=== PATIENT | female | born 1975 | race Caucasian/White ===

== ENCOUNTER → 2020-03-26 | Outpatient (CLI) | payer BC ==
[~2020-03-26] VITALS: Ht 162.6 cm; Wt 87.5 kg
[~2020-03-26] MED LIST: ATENOLOL 100MG100 MG PO; FLEXERIL PO; MELOXICAM15 MG PO; TEMAZEPAM30 MG PO; TOPAMAX100 MG PO
[2020-03-26 10:24] VITALS: BP 120/83
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
== END ==
LOC: PAIN 06:51
PROVIDERS: ATTEND Anesthesiology Pain Medicine
DX: M54.5 Low back pain (principal); G89.29 Other chronic pain

== ENCOUNTER → 2020-05-08 | Outpatient (CLI) | payer BC ==
[~2020-05-08] VITALS: Ht 160 cm; Wt 87.8 kg
[2020-05-08 12:25] VITALS: BP 117/80
--- NOTE | 2020-05-08 12:33 | NUR ---
Pain Clinic Assessment: 1. History of Osteoarthritis: DENIES History of Rheumatoid Arthritis: Not Applicable 2. Height: 5 ft. 3 in. 160.0 cm. Weight: 193.6 lb. oz. 87.816 kg. Patient's BMI: 34.3 3. Vital Signs: BP: 117/80 Pulse: 91 Resp: 18 Temp: 02 Sat: 100 ECG Mon: 4. Pain Intensity: 2 TO 7 5. Fall Risk: Dizziness: N Needs help standing or walking: N Fallen in the last 3 months: N Fall risk comments: 6. Patient on Blood Thinner: None 7. History of Hypertension: N 8. Opioid Therapy greater than 6 weeks: N Opiate Contract Signed: 9. Risk Assessment Tool Provided: LOW-0 10. Functional Assessment Tool: 11. Recreational Drug Use: Never Drug Type: Tobacco Use: Never Smoker Tobacco Type: Amount or Packs/day: How Many Years: Alcohol Use: Yes Frequency: Special Occasions Quant: 1
--- NOTE | 2020-05-14 08:22 | HPC ---
[facility] [address] [place] [address] PAIN MANAGEMENT CONSULTATION Name: JAZMINE WEAVER Room #: REG CHARLINE Gay#: [id number] Admission: 05/08/20 Attend Phys: French Topete DO Discharge: Date of : 79 Report #: [id number] THIS REPORT FOR: cc: JUAN M - No family physician/PCP FAM - No family physician/PCP French Topete DO ~ DATE OF SERVICE: 05/08/2020 CHIEF COMPLAINT: Axial back pain, left lower extremity pain with paresthesias. HISTORY OF PRESENT ILLNESS: As you know, the patient is a 44-year-old female with longstanding history of axial back pain without radiation of symptoms. She states her pain began somewhere in 2018. She sought evaluation through neurosurgery, who advised the patient there are no surgical findings within her MRI, that she was suffering from mild arthritic changes and that treatment to address facet arthropathy would be most recommended. She was seen in consultation per the request of her neurosurgeon team on 03/26/2020 and diagnosed with lumbosacral spondylosis without radiculopathy secondary to mild facet arthropathy. She was established an appointment today to undergo bilateral intraarticular facet injections at L4-L5 and L5-S1 to address her facet arthropathy pain. The patient was attempting to see us earlier, but due to her schedule, the first available appointment that she could actually attend was today, 05/08/2020. She reports that the medication adjustments we made at her last visit provided minimal benefit. She is now placing her pain score as 2-7/10. She denies injury or trauma that may have led to symptom reoccurrence. She returns today for intra-articular facet injections. ALLERGIES: No known drug allergies. CURRENT MEDICATIONS: Atenolol, topiramate, meloxicam, cyclobenzaprine, temazepam, Fioricet, amantadine. SOCIAL HISTORY: The patient denies tobacco, alcohol, IV or illicit drug use. 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 She is not receiving workmen's compensation nor is she trying to obtain disability benefits. Unaccompanied today. IMAGING: No new imaging available. PHYSICAL EXAMINATION: VITAL SIGNS: Blood pressure 117/80, pulse 91, respiratory rate 18 and unlabored. The patient is 100% on room air. Height 5 feet 3 inches tall, weight 193.6 pounds, BMI calculated 34.3. GENERAL: Well-developed, well-nourished, well-hydrated 44-year-old female appearing stated age. She is placing her current pain score at 2-7/10. HEENT: Normocephalic, atraumatic. Pupils equal, round. The patient is wearing [facility] [address] [place] [address] PAIN MANAGEMENT CONSULTATION Name: JAZMINE WEAVER Room #: REG CLIsi Gay#: [id number] Admission: 05/08/20 Attend Phys: French Topete DO Discharge: Date of : 79 Report #: [id number] a mask in compliance with COVID-19 regulations. EXTREMITIES: Show no clubbing, no cyanosis, no edema. MUSCULOSKELETAL: Lower extremity strength remains symmetrical again today 5/5. Seated straight leg raising negative. Supine straight leg raising negative. Mark's test is negative. Modified Gaenslen's positive for mild axial back pain. There is no radiation of symptoms. She remains intact to light touch from L1 through S2 dermatomes. Lumbar provocation testing is met with mild increase in axial back pain. ASSESSMENT: 1. Lumbosacral spondylosis without radiculopathy. 2. Facet arthropathy of the lumbar spine. 3. Chronic intractable pain. PLAN: 1. The patient returns today in followup visit to undergo intraarticular facet injections under fluoroscopic guidance per the request of her neurosurgery team. The patient has been advised of the risks and the benefits of intraarticular facet injections. These risks include but are not necessarily limited to bleeding, bruising, infection, worsening pain, no relief of pain, also risk of temporary or permanent muscle weakness, temporary or permanent nerve damage, possible paralysis and . The patient states she understood and wished to proceed. 2. No medication changes made at today's visit. The patient will continue to take her anti-inflammatory as directed. I did advise the patient if she is noting no improvement in symptoms in the next couple of weeks to contact our clinic. We would adjust her medications to add nabumetone in place of her meloxicam to take up to 3 times a day with meals. This might provide better analgesic benefit and more improved therapeutic benefit as well. The patient will contact our clinic if she is not seeing significant pain improvement with the intra-articular facet injections. PROCEDURE NOTE DESCRIPTION OF PROCEDURE: Bilateral L4-L5, L5-S1 intraarticular facet injections under fluoroscopic guidance. This is the first procedure of the first series that the patient is undergoing. After obtaining written consent, the patient was taken back to the fluoroscopy suite and placed in a prone position with a pillow under the abdomen to decrease the lumbar lordosis and to facilitate needle entry into the facet joints. The skin overlying the lumbosacral area was prepped and draped in an aseptic fashion. AP and lateral fluoroscopic imaging was obtained. Optimal position of the fluoroscope occurred when the joint line was first visualized. [address] [address] PAIN MANAGEMENT CONSULTATION Name: JAZMINE WEAVER Room #: REG [facility]#: [id number] Admission: 05/08/20 Attend Phys: French Topete DO Discharge: Date of : 79 Report #: [id number] The facet joints were identified radiographically directed adjacent to the superior articular process of the caudad vertebrae. The skin overlying the target site(s) of injection was anesthetized using 3 mL of 1% lidocaine. Four 22-gauge 3-1/2 inch spinal needles with bent tips were advanced towards the 4 facet joint(s) at the L4-L5 and L5-S1 levels under fluoroscopic guidance. The firm posterior capsules had its characteristic feel and the needles were advanced a few additional millimeters beyond the joint capsule into the joint space, but not into the articular cartilages. After the joint space was entered and aspiration was negative for heme or CSF, 0.2 mL of Omnipaque was injected demonstrating a characteristic facet arthrograms. After negative aspiration for heme or CSF, each joint was slowly injected with 1.5 mL of a solution containing 2 mL 40 mg per mL, 80 mg total triamcinolone along with 0.5 mL bupivacaine 0.5% facet(s). Four needles were then removed. There were no apparent complications. The patient tolerated the procedure well and was carefully escorted to the recovery room in stable condition. The VAS was 2-7/10 before the procedure and 0/10 minutes after the procedure. After meeting discharge criteria, the patient was discharged home. <ELECTRONICALLY SIGNED> By: French Topete DO 05/14/20 0822 [id number] French Topete DO /nt
== END | disposition home or self-care (01) ==
LOC: PAIN 06:50
PROVIDERS: ATTEND Anesthesiology Pain Medicine
DX: M47.817 Spondylosis without myelopathy or radiculopathy, lumbosacral region (principal); M47.816 Spondylosis without myelopathy or radiculopathy, lumbar region; G89.29 Other chronic pain; Z98.890 Other specified postprocedural states; Z79.899 Other long term (current) drug therapy

== ENCOUNTER → 2020-08-14 | Outpatient (CLI) | payer BC ==
[~2020-08-14] VITALS: Ht 160 cm; Wt 88.7 kg
[~2020-08-14] MED LIST changes: +NABUMETONE 500500 M2 PO
[2020-08-14 10:32] VITALS: BP 100/61
--- NOTE | 2020-08-14 10:46 | NUR ---
Document as much information as known. If only year is known, type in year only. DO NOT type in UNKNOWN or NEVER!
--- NOTE | 2020-08-14 10:47 | NUR ---
Pain Clinic Assessment: 1. History of Osteoarthritis: DENIES History of Rheumatoid Arthritis: Not Applicable 2. Height: 5 ft. 3 in. 160.0 cm. Weight: 195.6 lb. oz. 88.724 kg. Patient's BMI: 34.7 3. Vital Signs: BP: 100/61 Pulse: 74 Resp: 16 Temp: 02 Sat: 98 ECG Mon: 4. Pain Intensity: 2.5 5. Fall Risk: Dizziness: N Needs help standing or walking: N Fallen in the last 3 months: N Fall risk comments: 6. Patient on Blood Thinner: None 7. History of Hypertension: N 8. Opioid Therapy greater than 6 weeks: N Opiate Contract Signed: 9. Risk Assessment Tool Provided: LOW-0 10. Functional Assessment Tool: 11. Recreational Drug Use: Never Drug Type: Tobacco Use: Never Smoker Tobacco Type: Amount or Packs/day: How Many Years: Alcohol Use: Yes Frequency: Quant:
--- NOTE | 2020-08-20 07:57 | HPC ---
[facility] [address] [place] [address] PAIN MANAGEMENT CONSULTATION Name: JAZMINE WEAVER Room #: REG CHARLINE Victor Hugo#: [id number] Admission: 08/14/20 Attend Phys: French Topete DO Discharge: Date of : 79 Report #: [id number] THIS REPORT FOR: cc: FAM - No family physician/PCP FAM - No family physician/PCP French Topete DO ~ DATE OF SERVICE: 08/14/2020 REFERRING PHYSICIAN: Henny Merritt NP. CHIEF COMPLAINT: Axial back pain. HISTORY OF PRESENT ILLNESS: As you know, the patient is a very pleasant 44-year-old female with longstanding history of axial back pain without radiation of symptoms referred to our clinic by her neurosurgery team for facet arthropathy of the lumbar spine and to undergo intraarticular facet injections under fluoroscopic guidance. The patient underwent intra-articular facet injections per their request on 05/08/2021 with good benefit. The patient reports pain was alleviated by up to 100%, lasting for a month and then slowly and progressively returned. No inciting injury or trauma. The patient states that she may have exacerbated symptoms while doing a home exercise routine where she was doing leg lifts with her back on the floor and this led to pulling sensation and instantaneous recurrence of pain. She trialled conservative treatment including kmpk-ikz-objifet medications and prescription medications without benefit. She returns today in followup visit to undergo intra-articular facet injections and to receive an increase in her nonsteroidal anti-inflammatory as she was not seeing benefit prior. ALLERGIES: No known drug allergies. CURRENT MEDICATIONS: Atenolol, topiramate, Meloxicam, cyclobenzaprine, temazepam, Fioricet, amantadine. SOCIAL HISTORY: The patient denies tobacco, alcohol, IV or illicit drug use. 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 Unaccompanied today. IMAGING: No new imaging available. PHYSICAL EXAMINATION: VITAL SIGNS: Blood pressure 100/61, pulse is 74, respiratory rate 16 and unlabored. The patient is 98% on room air. Height 5 feet 3 inches tall, weight 195.6 pounds, BMI calculated 34.7. GENERAL: Well-developed, well-nourished, well-hydrated exogenously obese 44-year-old female appearing stated age, pain is rated today 2.5/10. HEENT: Normocephalic, atraumatic. Pupils equal, round, and responsive. The [address] [address] PAIN MANAGEMENT CONSULTATION Name: JAZMINE WEAVER Room #: REG [facility]#: [id number] Admission: 08/14/20 Attend Phys: French Topete DO Discharge: Date of : 79 Report #: [id number] patient is wearing a mask in compliance with COVID-19 regulations. EXTREMITIES: Show no clubbing, no cyanosis. No appreciable edema. MUSCULOSKELETAL: Lower extremity strength is symmetrical 5/5, intact to light touch from L1 through S2 dermatomes. Seated straight leg raising is negative. Supine straight leg raising is negative. Mark's test is negative. Modified Gaenslen's positive for axial low back pain. Ankle clonus is negative. Babinski remains negative. Lumbar provocation testing including extension, rotation, lateral flexion all intensify axial back pain, slight forward flexion of lumbar spine improves pain to some degree. ASSESSMENT: 1. Lumbosacral spondylosis with radiculopathy. 2. Facet arthropathy of the lumbar spine. 3. Chronic intractable pain. PLAN: 1. The patient returns today in followup visit requesting to undergo bilateral L4-L5, L5-S1 intraarticular facet injections under fluoroscopic guidance. The last procedure in April gave 100% improvement in overall pain, but unfortunately, her symptoms recurred after participating in a workout routine at home where she was doing leg lifts and this exacerbated her back pain. She believes this along with some other activities contributed to her recurrence of pain. She returns today in followup visit requesting to undergo the procedure. 2. The patient has been advised risks and benefits of bilateral intraarticular facet injections to be performed at L4-L5 and L5-S1. These risks include but are not necessarily limited to bleeding, bruising, infection, worsening pain, no relief of pain, also risk of temporary or permanent muscle weakness, temporary or permanent nerve damage, possible paralysis and . The patient states understood and wished to proceed. 3. We will discontinue the patient's meloxicam, in place we will be using nabumetone 500 mg dose. She is to watch for dyspepsia, worsening of blood pressure, lower extremity edema with its use. If she notes any side effects, discontinue immediately and call for further instructions. The patient can pick up man the prescription today and start as early as this evening. We recommend that she do take this with meals to decrease the potential of dyspepsia. She was given this prescription #90 tablets, 2 refills. 4. We plan to see the patient back in followup visit on an as needed basis. We are hopeful the patient will see good and prolonged benefit with the intraarticular facet injections. If her symptoms do reoccur, we would then recommend beginning medial branch nerve blocks and possible radiofrequency lesioning as a treatment course. PROCEDURE NOTE DESCRIPTION OF PROCEDURE: Bilateral L4-L5, L5-S1 intraarticular facet injections under fluoroscopic guidance. [facility] [address] [address] PAIN MANAGEMENT CONSULTATION Name: JAZMINE WEAVER Room #: REG CLIsi Monroe.#: [id number] Admission: 08/14/20 Attend Phys: French Topete DO Discharge: Date of : 79 Report #: [id number] After obtaining written consent, the patient was taken back to fluoroscopy suite, placed in prone position with pillow under abdomen to decrease lumbar lordosis and to facilitate needle entry into the facet joints. Skin overlying lumbosacral area prepped and draped in aseptic fashion using chlorhexidine. AP imaging with the fluoroscope was obtained. Optimal position of the fluoroscope was noted when the joint lines were first visualized. Facet joints were identified radiographically directly adjacent to the superior articular process of the caudad vertebrae. Skin overlying the target sites of injections were anesthetized with 2 mL of 1% lidocaine. This was done at 2 sites on the right, 2 sites on the left, correlating the L4-L5, L5-S1 facet joints bilaterally. Four 22-gauge 3-1/2 inch spinal needles with bent tips were advanced towards the facet joints on the left at L4-L5 and L5-S1 and on the right at the L4-L5 and L5-S1 levels. These were all done under fluoroscopic guidance. Each needle was advanced until reaching the firm posterior capsule at each site. The needles were then advanced into the facet joint, but not into the articular cartilage. After negative aspiration for heme or cerebrospinal fluid, 0.2 mL of Omnipaque was injected at each site confirming an excellent facet arthrogram and no vascular uptake. After negative aspiration for heme or cerebrospinal fluid, 1.5 mL of a solution containing 2 mL 40 mg per mL, 80 mg total triamcinolone and 4 mL bupivacaine 0.5% injected slowly. Needle retracted senior living, flushed with 1 mL of 1% lidocaine and then each needle removed. Sterile bandage was placed over each of the injection sites. The patient tolerated procedure well, carefully escorted to recovery room in stable condition. No apparent complications. After meeting discharge criteria, the patient discharged home. <ELECTRONICALLY SIGNED> By: French Topete DO 08/20/20 [id number] French Topete DO /nt
== END | disposition home or self-care (01) ==
LOC: PAIN 06:50
PROVIDERS: ATTEND Anesthesiology Pain Medicine
DX: M47.816 Spondylosis without myelopathy or radiculopathy, lumbar region (principal); M47.817 Spondylosis without myelopathy or radiculopathy, lumbosacral region; E66.01 Morbid (severe) obesity due to excess calories; Z98.890 Other specified postprocedural states; Z79.899 Other long term (current) drug therapy; Z68.34 Body mass index [BMI] 34.0-34.9, adult

== ENCOUNTER → 2020-12-25 | Outpatient (CLI) | payer BC ==
[~2020-12-25] VITALS: Ht 160 cm; Wt 87.8 kg
[~2020-12-25] MED LIST changes: +DICLOFENAC POTA50 MG PO
[2020-12-25 10:09] VITALS: BP 103/70
--- NOTE | 2020-12-25 10:44 | NUR ---
Pain Clinic Assessment: 1. History of Osteoarthritis: DENIES History of Rheumatoid Arthritis: Not Applicable 2. Height: 5 ft. 3 in. 160.0 cm. Weight: 193.6 lb. oz. 87.816 kg. Patient's BMI: 34.3 3. Vital Signs: BP: 103/70 Pulse: 70 Resp: 16 Temp: 02 Sat: 100 ECG Mon: 4. Pain Intensity: 2 TO 9 AT NIGHT 5. Fall Risk: Dizziness: N Needs help standing or walking: N Fallen in the last 3 months: N Fall risk comments: 6. Patient on Blood Thinner: None 7. History of Hypertension: N 8. Opioid Therapy greater than 6 weeks: N Opiate Contract Signed: 9. Risk Assessment Tool Provided: LOW-0 10. Functional Assessment Tool: 11. Recreational Drug Use: Never Drug Type: Tobacco Use: Never Smoker Tobacco Type: Amount or Packs/day: How Many Years: Alcohol Use: Yes Frequency: Quant:
--- NOTE | 2021-01-01 10:47 | HPC ---
[facility] [address] [address] PAIN MANAGEMENT CONSULTATION Name: JAZMINE WEAVER Room #: REG Isi Mabel.#: [id number] Admission: 12/25/20 Attend Phys: French Topete DO Discharge: Date of : 79 Report #: [id number] THIS REPORT FOR: cc: FAM - No family physician/PCP FAM - No family physician/PCP French Topete DO ~ DATE OF SERVICE: 12/25/2020 REFERRING PROVIDER: ____ CHIEF COMPLAINT: Axial back pain, left lower extremity pain. HISTORY OF PRESENT ILLNESS: As you know, the patient is a 45-year-old female who returns today in followup visit reporting a pain score of around 2-9/10 depending on activity. She describes the pain as chronic in nature. She indicates some numbness and tingling and sharp sensations that have begun to recur. She underwent intra-articular facet injections bilaterally at L4-L5 and L5-S1 at our last visit, which gave improvement in symptoms of greater than 70%, which is ongoing until just recently. She returns today in followup visit to discuss treatment options. She indicates no injury or trauma. She reports back pain is similar to what her previous evaluation was. ALLERGIES: No known drug allergies. CURRENT MEDICATIONS: Nabumetone 500 mg 3 times a day, temazepam 30 mg p.o. daily, topiramate 50 mg b.i.d., atenolol 100 mg once a day. SOCIAL HISTORY: The patient denies tobacco, alcohol or IV or illicit drug use. 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 She is unaccompanied today. IMAGING: No new imaging available. PHYSICAL EXAMINATION: VITAL SIGNS: Blood pressure 103/70, pulse 70, respiratory rate 16 and unlabored. The patient 100% on room air. Height 5 feet 3 inches tall, weight 193.6 pounds, BMI calculated 34.3. GENERAL: Well-developed, well-nourished, well-hydrated exogenously obese 45-year-old female appearing stated age, pain is rated anywhere from 2-9/10. HEENT: Normocephalic, atraumatic. Pupils equal, round and responsive. She is wearing a mask in compliance with COVID-19 regulations. EXTREMITIES: Show no clubbing, no cyanosis. No appreciable edema. MUSCULOSKELETAL: Lower extremity strength equal and symmetrical, 5/5. Seated straight leg raising negative. Supine straight leg raising negative. ANNE test is negative. Modified Gaenslen's positive for axial low back pain. Ankle clonus negative. Babinski is negative. ASSESSMENT: [address] [address] PAIN MANAGEMENT CONSULTATION Name: JAZMINE WEAVER Room #: REG CL Chapo.#: [id number] Admission: 12/25/20 Attend Phys: French Topete DO Discharge: Date of : 79 Report #: [id number] 1. Lumbosacral spondylosis without radiculopathy. 2. Facet arthropathy of the lumbar spine. 3. Chronic intractable pain. 4. Chronic low back pain. PLAN: 1. The patient returns today in followup visit to discuss the possibility of undergoing intraarticular facet injections under fluoroscopic guidance. We have discussed with the patient also medial branch nerve blocks and radiofrequency lesioning. The patient and I discussed the possibility of undergoing the injections today, but this does require authorization. The patient states she does not have time to undergo the authorization process and cannot wait to return due to her schedule with school starting this week. She is requesting a possible adjustment in medication management in hopes of gaining improvement in symptoms. She will consider her options from an injection standpoint in the future, but at this point she cannot await the approval processes due to her current scheduling. We will begin that process for authorization. Once it is obtained, we will contact the patient, if she is able to return, we will have her undergo a diagnostic intra-articular facet injections at L4-L5 and L5-S1 bilaterally. 2. The patient was provided a rotation in her anti-inflammatory medication, will be trying diclofenac potassium 50 mg dose 1 tab p.o. t.i.d. p.r.n. pain. I have given the patient #90 tablets, 2 refills, 3 months' worth of medication. Prescription sent via e-scribe to local pharmacy. 3. We plan to see the patient back in followup visit for intra-articular facet injections for diagnostic purposes. Otherwise, we will see her back for medication management in 3 months. <ELECTRONICALLY SIGNED> By: French Topete DO 01/01/21 [id number] [id number] French Topete DO /nt
== END ==
LOC: PAIN 08:59
PROVIDERS: ATTEND Anesthesiology Pain Medicine
DX: M47.27 Other spondylosis with radiculopathy, lumbosacral region (principal); G89.4 Chronic pain syndrome; Z79.899 Other long term (current) drug therapy; Z79.891 Long term (current) use of opiate analgesic